=== PATIENT | female | born 1990 | race Caucasian/White ===

== ENCOUNTER 2017-02-04 09:09 | Outpatient (CLI) ==
--- NOTE | 2017-02-04 09:50 | US ---
EXAM: Right upper quadrant abdominal ultrasound. History: Right upper quadrant abdominal pain. Technique: Multiple sonographic images through the abdomen were obtained. Color duplex Doppler was used to interrogate vascular flow. Findings: The liver is enlarged measuring 18 cm in length. The visualized pancreas demonstrates no gross abnor mality. No abdominal ascites. The liver is echogenic. No focal liver lesions identified sonographi geovany. Limited visualization of the right kidney demonstrates no evidence for hydronephrosis. There is antegrade flow within the main portal vein. No shadowing gallstones. Gallbladder wall is not th ickened. Common bile duct measures 0.4 cm in caliber. Impression: Mildly enlarged fatty liver.
[2017-02-04 10:03] LABS: ALBUMIN 2.9 g/dL (3.4-5.0); ALBUMIN/GLOBULIN RATIO 0.64; ANION GAP 12.1; BILIRUBIN,TOTAL 0.27 mg/dL (0.00-1.20); BUN/CREATININE RATIO 14.51; CALCIUM 9.5 mg/dL (8.2-10.2); CHOL/HDL RATIO 5.9 (4.5-5.5); CREATININE 0.62 mg/dL (0.60-1.30); POTASSIUM 4.1 mmol/L (3.5-5.10); TOTAL PROTEIN 7.4 g/dL (6.4-8.2)
== END 2017-02-04 09:10 | disposition home or self-care (01) ==
LOC: RAD 09:09
PROVIDERS: ATTEND Physician Assistant
DX: R10.11 Right upper quadrant pain (principal); E78.2 Mixed hyperlipidemia; R73.02 Impaired glucose tolerance (oral)
CPT/HCPCS: 36415; 80053; 80061; 83036

== ENCOUNTER 2022-08-01 10:55 | Observation (INO) ==
[2022-08-01] MEDS ORDERED: TORADOL IVP ONE (11:13)
[2022-08-01] MEDS ORDERED: ZOFRAN 4 MG/2 ML IVP ONE ×2 (11:13→14:25)
[2022-08-01] MEDS ORDERED: SODIUM CHLORIDE 1,000 ML IV STA ×3 (11:13→14:02)
--- NOTE | 2022-08-01 11:17 | ED.PDOC ---
General ED Provider: Dr. NATHANAEL CHICAS MD Chief Complaint: Abdominal Pain Stated Complaint: mild to mod ruq cramps rad to back for one day, no injury, no fever, no hx GB surgery, hx anxiety Time Seen by Provider: 08/01/22 10:56 Mode of Arrival: Walk-In Information Source: Patient Primary Care Provider: JORGE A COOPER Nursing and Triage Documentation Reviewed and Agree: Yes Does patient meet sepsis criteria?: No System Inflammatory Response Syndrome: Not Applicable Sepsis Protocol: For patient's 13 years and over: Temp is 96.8 and below OR 101 and greater Pulse >90 BPM Resp >20/minute Acutely Altered Mental Status Are patient's symptoms suggestive of a new infection, such as: -Pneumonia -Skin, Soft Tissue -Endocarditis -UTI -Bone, Joint Infection -Implantable Device -Acute Abdominal Infection -Wound Infection -Meningitis -Blood Stream Catheter Infection -Unknown Review of Systems Review Of Systems Constitutional: Denies Fever Eyes: Denies Vision change Ears, Nose, Mouth, Throat: Denies Throat pain Respiratory: Denies Cough or Short of air Cardiac: Denies Chest pain GI: Reports Abdominal pain, Nausea and Vomiting : Denies Frequency Musculoskeletal: Denies Neck pain Skin: Denies Rash Neurological: Denies Cognitive dysfunction All Other Systems: Other PFSH Female Reproductive History Menstrual Hx Hysterectomy: No Hx Tubal Ligation: No Physical Exam Physical Exam Appearance: Reports Obese Ill-appearing: Mild Pain Distress: Mild Eyes: Reports Conjunctiva clear ENT: Reports Oropharynx normal Neck: Supple Respiratory: Reports Airway patent, Breath sounds clear and Breath sounds equal Cardiovascular: Reports RRR GI/: Reports Soft and Tender (no rebound) Musculoskeletal: Reports ROM intact Skin: Reports Warm and Dry Neurological: Reports Alert and Oriented Psychiatric: Reports Affect appropriate Interpretation Radiology Interpretation Radiology Interpretation By: Radiologist Exam Interpreted: CT Scan Xray Comments: no PE, no obstruction, no free air Critical Care Note Critical Care Note Total Critical Care Time (mins): 0 Course Course Hematology/Chemistry: 08/01/22 11:22 08/01/22 11:22 Orders, Labs, Meds: Lab Review 08/01/22 08/01/22 08/01/22 11:22 11:22 11:22 WBC 19.72 H RBC 5.14 Hgb 14.0 Hct 43.5 MCV 84.6 MCH 27.2 MCHC 32.2 RDW Coeff of Justin 13.2 Plt Count 518 H Immature Gran % (Auto) 0.4 Neut % (Auto) 94.5 H Lymph % (Auto) 2.9 L Cedar % (Auto) 1.6 Eos % (Auto) 0.4 Baso % (Auto) 0.2 Neut # (Auto) 18.7 H Lymph # (Auto) 0.6 Cedar # (Auto) 0.3 L Eos # (Auto) 0.1 Baso # (Auto) 0.0 Immature Gran # (Auto) 0.1 Sodium 137.4 Potassium 3.73 Chloride 101.1 Carbon Dioxide 25.5 Anion Gap 14.53 BUN 11.5 Creatinine 0.46 L Estimated GFR (MDRD) 156.00 BUN/Creatinine Ratio 25.00 Glucose 222.2 H Lactic Acid 3.25 H Calcium 8.78 Total Bilirubin 0.47 AST 31.2 ALT 24.1 Alkaline Phosphatase 137.8 H Total Protein 8.61 H Albumin 4.66 Globulin 3.95 Albumin/Globulin Ratio 1.17 Lipase 89.4 Serum , Qual Urine Color Urine Clarity Urine pH Ur Specific Berkley Urine Protein Urine Glucose (UA) Urine Ketones Urine Blood Urine Nitrite Urine Bilirubin Urine Urobilinogen Ur Leukocyte Esterase Urine Microscopic RBC Urine Microscopic WBC Ur Squamous Epith Cells Urine Mucus Urine Opiates Screen Ur Oxycodone Screen Urine Methadone Screen Ur Propoxyphene Screen Ur Barbiturates Screen U Tricyclic Antidepress Ur Phencyclidine Scrn Ur Amphetamine Screen U Methamphetamines Scrn U Benzodiazepines Scrn Urine Cocaine Screen U Cannabinoids Screen 08/01/22 08/01/22 08/01/22 11:22 12:50 12:50 WBC RBC Hgb Hct MCV MCH MCHC RDW Coeff of Justin Plt Count Immature Gran % (Auto) Neut % (Auto) Lymph % (Auto) Cedar % (Auto) Eos % (Auto) Baso % (Auto) Neut # (Auto) Lymph # (Auto) Cedar # (Auto) Eos # (Auto) Baso # (Auto) Immature Gran # (Auto) Sodium Potassium Chloride Carbon Dioxide Anion Gap BUN Creatinine Estimated GFR (MDRD) BUN/Creatinine Ratio Glucose Lactic Acid Calcium Total Bilirubin AST ALT Alkaline Phosphatase Total Protein Albumin Globulin Albumin/Globulin Ratio Lipase Serum , Qual Negative Urine Color Yellow Urine Clarity Clear Urine pH 7.0 Ur Specific Berkley 1.015 Urine Protein Trace H Urine Glucose (UA) Trace H Urine Ketones Negative Urine Blood Negative Urine Nitrite Negative Urine Bilirubin Negative Urine Urobilinogen 0.2 Ur Leukocyte Esterase Negative Urine Microscopic RBC 2-5 Urine Microscopic WBC 0-2 Ur Squamous Epith Cells 2-5 Urine Mucus 2+ Urine Opiates Screen Negative Ur Oxycodone Screen Negative Urine Methadone Screen Negative Ur Propoxyphene Screen Negative Ur Barbiturates Screen Negative U Tricyclic Antidepress Negative Ur Phencyclidine Scrn Negative Ur Amphetamine Screen Negative U Methamphetamines Scrn Negative U Benzodiazepines Scrn Negative Urine Cocaine Screen Negative U Cannabinoids Screen Negative Orders Category Date Time Status NPO REMINDER: IMAGING ONCE CARE 08/01/22 11:47 Completed NPO REMINDER: IMAGING ONCE CARE 08/01/22 14:40 Active BLOOD CULTURE Stat LAB 08/01/22 15:20 Received CBC W/ AUTO DIFF Stat LAB 08/01/22 11:22 Completed CMP [COMPREHENSIVE METABOLIC PANEL] Stat LAB 08/01/22 11:22 Completed DRUG SCREEN, URINE, RAPID Stat LAB 08/01/22 12:50 Completed HCG QUALITATIVE [SERUM ] Stat LAB 08/01/22 11:22 Completed LACTIC ACID Stat LAB 08/01/22 11:22 Completed LIPASE Stat LAB 08/01/22 11:22 Completed URINALYSIS C & S IF INDICATED Stat LAB 08/01/22 12:50 Completed Ketorolac Tromethamine [Toradol] MEDS 08/01/22 11:13 Discontinued 30 mg IVP ONCE ONE Levofloxacin/D5w [Levaquin 750 mg/150 ml D5w] MEDS 08/01/22 14:39 Discontinued 750 mg in 150 ml IV ONCE Lorazepam [Ativan] MEDS 08/01/22 14:46 Discontinued 1 mg IVP ONCE ONE Ondansetron HCl/Pf [Zofran 4 mg/2 ml] MEDS 08/01/22 11:13 Discontinued 4 mg IVP ONCE ONE Ondansetron HCl/Pf [Zofran 4 mg/2 ml] MEDS 08/01/22 14:25 Discontinued 4 mg IVP ONCE ONE Sodium Chloride 0.9% [Sodium Chloride] 1,000 ml MEDS 08/01/22 11:13 Discontinued IV BOLUS Sodium Chloride 0.9% [Sodium Chloride] 1,000 ml MEDS 08/01/22 14:02 Discontinued IV BOLUS CHEST, 2 VIEWS PA & LAT Stat RADS 08/01/22 14:[address] ABDOMEN/PELVIS WO CONTRAST Stat RADS 08/01/22 12:[address] CHEST PE PROTOCOL Stat RADS 08/01/22 14:39 Completed GALLBLADDER ULTRASOUND [U/S ABDOMEN RT UPPER QUAD] Stat RADS 08/01/22 11:47 Completed Medications Discontinued Medications Generic Name Dose Route Start Last Admin Trade Name Freq PRN Reason Stop Dose Admin Sodium Chloride 1,000 mls @ 1,000 mls/hr 08/01/22 11:13 08/01/22 11:26 Sodium Chloride IV 08/01/22 12:12 1,000 mls/hr BOLUS STA Administration Sodium Chloride 1,000 mls @ 1,000 mls/hr 08/01/22 14:02 08/01/22 14:39 Sodium Chloride IV 08/01/22 15:01 1,000 mls/hr BOLUS STA Administration Levofloxacin/Dextrose 750 mg in 150 mls @ 100 mls/hr 08/01/22 14:39 08/01/22 14:56 Levaquin 750 Mg/150 Ml D5w IV 08/01/22 16:08 100 mls/hr ONCE ONE Administration Ketorolac Tromethamine 30 mg 08/01/22 11:13 08/01/22 11:26 Ketorolac Tromethamine 30 Mg/Ml Vial IVP 08/01/22 11:14 30 mg ONCE ONE Administration Lorazepam 1 mg 08/01/22 14:46 08/01/22 14:56 Lorazepam Inj 2 Mg/Ml Vial IVP 08/01/22 14:47 1 mg ONCE ONE Administration Ondansetron HCl 4 mg 08/01/22 11:13 08/01/22 11:26 Ondansetron Hcl/Pf 4 Mg/2 Ml Sdv IVP 08/01/22 11:14 4 mg ONCE ONE Administration Ondansetron HCl 4 mg 08/01/22 14:25 08/01/22 14:39 Ondansetron Hcl/Pf 4 Mg/2 Ml Sdv IVP 08/01/22 14:26 4 mg ONCE ONE Administration Vital Signs: Temp Pulse Resp BP Pulse Ox 08/01/22 10:55 96.9 F L 123 H 20 147/90 H 98 Discharge Plan Discharge Patient Disposition: PLACED OBSERVATION Discharge Problem: Abdominal pain, Leukocytosis Did you review [place] [employer]COL[employer] RADIATION PHYSICIAN for ALL controlled substances?: Not Applicable ED Provider: NATHANAEL CHICAS Condition: Stable Physician Progress Note: []differential includes occult infection, admit to hospitalist obs
[2022-08-01 11:27] LABS: BASOPHILS % (AUTO) 0.2 % (0.0-3.0); EOSINOPHILS # (AUTO) 0.1 K/ul (0.0-0.7); EOSINOPHILS % (AUTO) 0.4 % (0.0-7.0); HEMATOCRIT 43.5 % (37.0-47.0); IMMATURE GRANULOCYTE # (AUTO) 0.1 (0.0-1.0); IMMATURE GRANULOCYTE % (AUTO) 0.4 % (0.0-5.0); LYMPHOCYTES # (AUTO) 0.6 K/uL (0.60-3.4); LYMPHOCYTES % (AUTO) 2.9 (10.0-50.0); MEAN CORPUSCULAR HEMOGLOBIN 27.2 pg (27.0-31.0); MEAN CORPUSCULAR HGB CONC 32.2 (31.8-35.4); MEAN CORPUSCULAR VOLUME 84.6 fl (81.0-99.0); MONOCYTES # (AUTO) 0.3 K/uL (0.4-2.0); MONOCYTES % (AUTO) 1.6 (0-10); NEUTROPHILS # (AUTO) 18.7 K/ul (2.0-6.9); NEUTROPHILS % (AUTO) 94.5 % (42.2-75.2); PLATELET COUNT 518 10^3/uL (140-440); RDW COEFFICIENT OF VARIATION 13.2 % (11.6-14.8); RED BLOOD COUNT 5.14 10^6/ul (4.20-5.40); WHITE BLOOD COUNT 19.72 K/ul (4.6-10.2)
[2022-08-01 11:44] LABS: SERUM PREGNANCY NEGATIVE (NEGATIVE)
[2022-08-01 11:45] LABS: ALANINE AMINOTRANSFERASE 24.1 U/L (0-35); ALBUMIN 4.66 g/dL (3.5-5.0); ALKALINE PHOSPHATASE 137.8 U/L (38-126); ASPARTATE AMINO TRANSFERASE 31.2 U/L (14-36); BILIRUBIN,TOTAL 0.47 mg/dL (0.2-1.3); BLOOD UREA NITROGEN 11.5 mg/dL (7-17); CALCIUM 8.78 mg/dL (8.4-10.2); CARBON DIOXIDE 25.5 mmol/L (22-30.0); CHLORIDE 101.1 mmol/L (98-107); CREATININE 0.46 mg/dL (0.60-1.30); GLUCOSE 222.2 mg/dL (74-106); LIPASE 89.4 U/L (23-300); POTASSIUM 3.73 mmol/L (3.5-5.1); SODIUM 137.4 mmol/L (134.5-145); TOTAL PROTEIN 8.61 g/dL (6.3-8.2)
--- NOTE | 2022-08-01 12:48 | US ---
EXAM: ULTRASOUND ABDOMEN LIMITED. HISTORY: Abdominal pain. COMPARISON: CT 07/01/2021. TECHNIQUE: Abdominal, real time with image documentation: limited (eg, single organ, quadrant, foll ow-up) FINDINGS: The liver is enlarged and demonstrates increased parenchymal echogenicity without intrahep atic biliary dilatation. Portal venous flow is normal in direction. The gallbladder is without shad owing stones, wall thickening or pericholecystic fluid. Common duct measures approximately 0.4 cm. Visualized portions of the pancreas and right kidney are unremarkable. IMPRESSION: Hepatomegaly with fatty infiltration.
[2022-08-01 13:42] LABS: BILIRUBIN,URINE Negative (NEGATIVE); CLARITY,URINE Clear (CLEAR); COLOR,URINE Yellow (YELLOW); GLUCOSE, URINE (UA) Trace (NEGATIVE); KETONES,URINE Negative (NEGATIVE); LEUKOCYTE ESTERASE ,URINE Negative (NEGATIVE); NITRITE,URINE Negative (NEGATIVE); PROTEIN,URINE Trace (NEGATIVE); URINE, BLOOD Negative (NEGATIVE); UROBILINOGEN,URINE 0.2 (0.2)
[2022-08-01 13:48] LABS: MUCUS,URINE 2+ (NOT PRESENT); URINE WBC, MICROSCOPIC 0-2 (0-2)
[2022-08-01 13:51] LABS: AMPHETAMINE SCREEN,URINE NEGATIVE (NEGATIVE); BARBITURATE SCREEN,URINE NEGATIVE (NEGATIVE); BENZODIAZEPINES SCREEN,URINE NEGATIVE (NEGATIVE); CANNABINOID SCREEN,URINE NEGATIVE (NEGATIVE); COCAIN SCREEN,URINE NEGATIVE (NEGATIVE); METHADONE URINE SCREEN NEGATIVE (NEGATIVE); METHAMPHETAMINES SCREEN,URINE NEGATIVE (NEGATIVE); OPIATE SCREEN,URINE NEGATIVE (NEGATIVE); OXYCODONE URINE SCREEN NEGATIVE (NEGATIVE); PHENCYCLIDINE SCREEN,URINE NEGATIVE (NEGATIVE); PROPOXYPHENE URINE SCREEN NEGATIVE (NEGATIVE); TRICYCLIC ANTIDEPRESSANTS URIN NEGATIVE (NEGATIVE)
--- NOTE | 2022-08-01 13:55 | CT ---
EXAM: CT ABDOMEN WITHOUT CONTRAST. CT PELVIS WITHOUT CONTRAST. HISTORY: Abdominal pain. COMPARISON: Ultrasound earlier the same day. CT 07/01/2021. TECHNIQUE: Multiple axial images of the abdomen and pelvis were obtained without intravenous contras t. Images were reformatted in the sagittal and coronal plane. FINDINGS: Please note that evaluation of the abdominal and pelvic structures is limited due to lack of intravenous contrast. The lung bases are clear. Heart is mildly enlarged. Degenerative changes in the spine. No acute osseous abnormality. Liver enlarged. Gallbladder, pancreas, spleen, adrenal glands are normal. No calcified renal stones or hydronephrosis. No ureteral dilatation or ureteral calculi. Bladder normal. Uterus demonstrates normal contour. No bowel obstruction or acute inflammation. Appendix normal. There is no free fluid or free air. A fox normal in caliber. Tiny fatty umbilical hernia. Nonenlarged mesenteric and retroperitoneal lym ph nodes. IMPRESSION: 1. No acute abnormality within the abdomen or pelvis. 2. Hepatomegaly. 3. Cardiomegaly. All CT scans are performed using dose optimization techniques as appropriate to the performed exam an d include at least one of the following: Automated exposure control, adjustment of the mA and/or kV according t o size, and the use of iterative reconstruction technique.
--- NOTE | 2022-08-01 14:31 | DI ---
EXAM: CHEST RADIOGRAPH TECHNIQUE: Two views. Frontal and lateral. HISTORY: Right-sided chest pain COMPARISON: 06/30/2021 FINDINGS: The lungs are clear. The heart size is normal. Osseaous structures are unremarkable IMPRESSION: 1. Normal Exam.
[2022-08-01] MEDS ORDERED: LEVAQUIN 750 MG/150 ML D5W 750 MG/150 ML BAG IV ONE (14:39)
[2022-08-01] MEDS ORDERED: ATIVAN IVP ONE (14:46)
--- NOTE | 2022-08-01 16:12 | CT ---
EXAM: CT ANGIOGRAM CHEST. HISTORY: Chest pain, upper abdominal pain, vomiting. Elevated white blood cell count. COMPARISON: Radiograph earlier the same day. TECHNIQUE: Multiple axial images of the chest were obtained following intravenous administration of 75 mL Omnipaque 350, low osmolar. Images were reformatted in the sagittal and coronal plane. 3-D an d maximum intensity projection reformatted images were created on an independent workstation. FINDINGS: No mediastinal, hilar, or axillary lymphadenopathy. Heart size mildly enlarged. No pericardial effusion. No pulmonary arterial filling defect. No consolidation, pleural effusion or pneumothorax. Limited images of the upper abdomen demonstrate hepatomegaly with fatty infiltration. No acute osseous abnormality. IMPRESSION: 1. No pulmonary embolus. 2. Cardiomegaly. All CT scans are performed using dose optimization techniques as appropriate to the performed exam an d include at least one of the following: Automated exposure control, adjustment of the mA and/or kV according t o size, and the use of iterative reconstruction technique.
[2022-08-01 17:03] LABS: SARS COV-2 RNA RAPID NAAT NEGATIVE (NEGATIVE)
[2022-08-01] MEDS: SODIUM CHLORIDE 1,000 ML IV SCH (17:45)
[2022-08-01 18:29] VITALS: BMI 42.5
[2022-08-01] MEDS ORDERED: NAPROSYN PO PRN (19:03)
[2022-08-01] MEDS: TYLENOL PO PRN (19:58)
[2022-08-01] MEDS: ZOFRAN 4 MG/2 ML IVP SCH (20:47)
[2022-08-02] MEDS: ZOFRAN 4 MG/2 ML IVP SCH ×3 (05:05→20:43)
[2022-08-02 05:10] LABS: BASOPHILS % (AUTO) 0.2 % (0.0-3.0); EOSINOPHILS % (AUTO) 0.1 % (0.0-7.0); HEMOGLOBIN 11.2 g/dl (12.0-16.0); IMMATURE GRANULOCYTE % (AUTO) 0.2 % (0.0-5.0); LYMPHOCYTES # (AUTO) 1.4 K/uL (0.60-3.4); LYMPHOCYTES % (AUTO) 16.8 (10.0-50.0); MEAN CORPUSCULAR HEMOGLOBIN 26.9 pg (27.0-31.0); MEAN CORPUSCULAR HGB CONC 31.1 (31.8-35.4); MEAN CORPUSCULAR VOLUME 86.3 fl (81.0-99.0); MONOCYTES # (AUTO) 0.5 K/uL (0.4-2.0); MONOCYTES % (AUTO) 5.9 (0-10); NEUTROPHILS # (AUTO) 6.2 K/ul (2.0-6.9); NEUTROPHILS % (AUTO) 76.8 % (42.2-75.2); PLATELET COUNT 361 10^3/uL (140-440); RDW COEFFICIENT OF VARIATION 13.5 % (11.6-14.8); RED BLOOD COUNT 4.17 10^6/ul (4.20-5.40); WHITE BLOOD COUNT 8.08 K/ul (4.6-10.2)
[2022-08-02] MEDS: TYLENOL PO PRN (05:10)
[2022-08-02 05:22] LABS: ALANINE AMINOTRANSFERASE 16.7 U/L (0-35); ALBUMIN 3.35 g/dL (3.5-5.0); ALKALINE PHOSPHATASE 78.9 U/L (38-126); ASPARTATE AMINO TRANSFERASE 22.5 U/L (14-36); BILIRUBIN,TOTAL 0.38 mg/dL (0.2-1.3); CALCIUM 7.13 mg/dL (8.4-10.2); CHLORIDE 108.1 mmol/L (98-107); CREATININE 0.41 mg/dL (0.60-1.30); GLUCOSE 208.7 mg/dL (74-106); POTASSIUM 3.04 mmol/L (3.5-5.1); SODIUM 137.9 mmol/L (134.5-145); TOTAL PROTEIN 6.43 g/dL (6.3-8.2)
[2022-08-02] MEDS: HUMULIN R SUBCUT PRN ×2 (05:36→12:07)
[2022-08-02] MEDS ORDERED: TORADOL IM STA (07:40)
[2022-08-02] MEDS: LEVAQUIN 750 MG/150 ML D5W 750 MG/150 ML BAG IV SCH (09:37)
[2022-08-02] MEDS: TRIGLIDE PO SCH (09:37)
[2022-08-02] MEDS: ZOCOR PO SCH (09:38)
[2022-08-02] MEDS: CYMBALTA PO SCH (09:38)
[2022-08-02] MEDS: HYDROCHLOROTHIAZIDE PO SCH (09:38)
[2022-08-02] MEDS: ACTOS PO SCH (09:38)
[2022-08-02] MEDS: SODIUM CHLORIDE 1,000 ML IV SCH (09:57)
[2022-08-02] MEDS ORDERED: ULTRAM PO PRN (13:22)
[2022-08-02] MEDS ORDERED: TYLENOL PO PRN (13:24)
[2022-08-02] MEDS: PROTONIX PO SCH ×2 (14:06→17:58)
[2022-08-02] MEDS ORDERED: PHENERGAN 25 MG/ML VIAL IM ONE (16:06)
--- NOTE | 2022-08-02 17:21 | PCM.PROG ---
Date Seen by Provider: 08/02/22 Time Seen by Provider: 12:51 Subjective: mild abdominal pain and persistent nausea x this day. Objective: Vitals: T=98.0 F, P=81, R=16, NJ=669/83, SPO2=99 HEENT: []wnl Neck: []supple Lungs: [] chest was clear CVS: []RRR Abdomen: []minimal epigastric to RUQ abdominal tenderness Extremities: []no acute abnormality Neurological: []non-focal Skin: []wnl Lab/Tests/Diagnostic Imaging: []see the reports (1) Abdominal pain: Status: Acute Code(s): R10.9 - Unspecified abdominal pain SNOMED Code(s): 72968842 (2) Leukocytosis: Status: Acute Code(s): D72.829 - Elevated white blood cell count, unspecified SNOMED Code(s): 932453952 Plan: See the treatment regimen. Ensure analgesia.
[2022-08-03 03:02] VITALS: TEMP 98
[2022-08-03] MEDS: SODIUM CHLORIDE 1,000 ML IV SCH (03:47)
[2022-08-03 05:20] LABS: BASOPHILS % (AUTO) 0.2 % (0.0-3.0); EOSINOPHILS # (AUTO) 0.2 K/ul (0.0-0.7); EOSINOPHILS % (AUTO) 2.2 % (0.0-7.0); HEMATOCRIT 33.9 % (37.0-47.0); HEMOGLOBIN 10.7 g/dl (12.0-16.0); IMMATURE GRANULOCYTE % (AUTO) 0.5 % (0.0-5.0); LYMPHOCYTES # (AUTO) 2.5 K/uL (0.60-3.4); LYMPHOCYTES % (AUTO) 29.9 (10.0-50.0); MEAN CORPUSCULAR HEMOGLOBIN 27.3 pg (27.0-31.0); MEAN CORPUSCULAR HGB CONC 31.6 (31.8-35.4); MEAN CORPUSCULAR VOLUME 86.5 fl (81.0-99.0); MONOCYTES # (AUTO) 0.5 K/uL (0.4-2.0); MONOCYTES % (AUTO) 5.4 (0-10); NEUTROPHILS # (AUTO) 5.1 K/ul (2.0-6.9); NEUTROPHILS % (AUTO) 61.8 % (42.2-75.2); PLATELET COUNT 348 10^3/uL (140-440); RDW COEFFICIENT OF VARIATION 13.6 % (11.6-14.8); RED BLOOD COUNT 3.92 10^6/ul (4.20-5.40)
[2022-08-03 05:31] LABS: ALANINE AMINOTRANSFERASE 16.4 U/L (0-35); ALBUMIN 3.27 g/dL (3.5-5.0); ALKALINE PHOSPHATASE 82.7 U/L (38-126); ASPARTATE AMINO TRANSFERASE 24.3 U/L (14-36); BILIRUBIN,TOTAL 0.23 mg/dL (0.2-1.3); BLOOD UREA NITROGEN 2.9 mg/dL (7-17); CALCIUM 7.43 mg/dL (8.4-10.2); CARBON DIOXIDE 27.3 mmol/L (22-30.0); CHLORIDE 107.4 mmol/L (98-107); CREATININE 0.43 mg/dL (0.60-1.30); GLUCOSE 149.6 mg/dL (74-106); SODIUM 138.8 mmol/L (134.5-145); TOTAL PROTEIN 6.33 g/dL (6.3-8.2)
[2022-08-03] MEDS: ZOFRAN 4 MG/2 ML IVP SCH (05:36)
[2022-08-03] MEDS: PROTONIX PO SCH (05:37)
[2022-08-03 05:40] LABS: POTASSIUM 2.72 mmol/L (3.5-5.1)
[2022-08-03] MEDS ORDERED: K-DUR PO ONE (05:57)
[2022-08-03] MEDS ORDERED: POTASSIUM CHLORIDE 10 MEQ VIAL- ADDITIVE ONLY IV ONE (06:25)
[2022-08-03] MEDS ORDERED: K-DUR ONE (06:27)
[2022-08-03] MEDS ORDERED: POTASSIUM CHLORIDE 10 MEQ VIAL- ADDITIVE ONLY 10 MEQ in SODIUM CHLORIDE 1,000 ML IV SCH (06:30)
[2022-08-03] MEDS: HUMULIN R SUBCUT PRN (06:33)
[2022-08-03] MEDS: ZOCOR PO SCH (09:23)
[2022-08-03] MEDS: TRIGLIDE PO SCH (09:23)
[2022-08-03] MEDS: ACTOS PO SCH (09:23)
[2022-08-03] MEDS: HYDROCHLOROTHIAZIDE PO SCH (09:24)
[2022-08-03] MEDS: CYMBALTA PO SCH (09:24)
[2022-08-03] MEDS: LEVAQUIN 750 MG/150 ML D5W 750 MG/150 ML BAG IV SCH (09:25)
[2022-08-03 11:10] VITALS: BP 139/81
--- NOTE | 2022-08-03 14:00 | PCM.DC ---
Final Diagnosis: dx. leukocytosis, abdominal pain abdominal pain is gone now 40min spent on discharge Physical Exam Appearance: Well-appearing Ill-appearing: None Pain Distress: None Eyes: Conjunctiva clear ENT: Oropharynx normal Neck: Supple Respiratory: Airway patent Cardiovascular: RRR GI/: Other (nondistended) Musculoskeletal: ROM intact Skin: Normal color Neurological: Alert and Oriented Psychiatric: Affect appropriate (1) Abdominal pain: Status: Acute Code(s): R10.9 - Unspecified abdominal pain SNOMED Code(s): 41432952 (2) Leukocytosis: Status: Acute Code(s): D72.829 - Elevated white blood cell count, unspecified SNOMED Code(s): 713538111 Reason for Hospitalization: abdominal pain Prognosis/Condition at Discharge: good Medications at Discharge: home meds, zofran, levaquin, potassium Lab/Diagnostics: wbc 8.3, K+ 2.7 Education Provided to Patient and Family: none Follow-ups: see your doctor Discharge Disposition: Home Hospital Course: good Plan: home
== END 2022-08-03 14:15 | disposition home or self-care (01) ==
LOC: MEDSURG A 10:55 → ED 10:55 → MEDSURG A 17:38
PROVIDERS: ADMIT Emergency Medicine Emergency Medical Services; ATTEND Emergency Medicine Emergency Medical Services
DX: R10.9 Unspecified abdominal pain; Z20.822 Contact with and (suspected) exposure to COVID-19; Z90.49 Acquired absence of other specified parts of digestive tract; E66.9 Obesity, unspecified; Z68.42 Body mass index [BMI] 45.0-49.9, adult; D72.829 Elevated white blood cell count, unspecified; Z51.81 Encounter for therapeutic drug level monitoring; Z79.84 Long term (current) use of oral hypoglycemic drugs; Z79.899 Other long term (current) drug therapy